=== PATIENT | male | born 1965 | race Asian ===

== ENCOUNTER 2018-02-26 00:48 | Emergency (ER) | payer OTHER ==
[~2018-02-26] VITALS: Ht 170.2 cm; Wt 76.2 kg
[2018-02-26 01:11] VITALS: Ht 170.2 cm; Wt 76.2 kg
[2018-02-26 03:19] LABS: BASOPHIL % 0.4 % (0-2); PLATELET COUNT 218 x10^3mcL (130-400); RED CELL DISTRIBUTION WIDTH 13.8 % (11.5-14.5)
[2018-02-26 04:17] LABS: CALCIUM 8.5 mg/dL (8.5-10.1); CARBON DIOXIDE 30.1 mmol/L (21-32); CHLORIDE SERUM 105 mmol/L (98-107); GFR1 > 60 mL/min; GLUCOSE SERUM 158 mg/dL (74-106); POTASSIUM SERUM 3.8 mmol/L (3.5-5.1); SODIUM SERUM 140 mmol/L (136-145)
[2018-02-26 04:22] LABS: ALBUMIN 3.7 g/dL (3.4-5.0); ALKALINE PHOSPHATASE 68 U/L (46-116); ALT/SGPT 23 U/L (16-63); AST/SGOT 11 U/L (15-37); BILIRUBIN TOTAL 0.5 mg/dL (0.20-1.00); LIPASE 176 IU/L (73-393); TOTAL PROTEIN, SERUM 7.1 g/dL (6.4-8.2)
[2018-02-26 05:02] VITALS: BP 190/90
== END 2018-02-26 05:02 | disposition home or self-care (01) ==
LOC: ED 00:48
PROVIDERS: Emergency Medicine
DX: K29.70 Gastritis, unspecified, without bleeding (principal); Z88.5 Allergy status to narcotic agent
CPT/HCPCS: 85378; J3490; Q0092

== ENCOUNTER 2018-11-30 11:56 | Emergency (ER) | payer OTHER ==
[2018-11-30 12:04] VITALS: Ht 170.2 cm
[2018-11-30 12:29] LABS: BASOPHIL % 0.1 % (0-2); PLATELET COUNT 215 x10^3mcL (130-400); RED CELL DISTRIBUTION WIDTH 14.3 % (11.5-14.5)
[2018-11-30 12:54] LABS: CALCIUM 9.3 mg/dL (8.5-10.1); CARBON DIOXIDE 27.5 mmol/L (21-32); CHLORIDE SERUM 104 mmol/L (98-107); CREATININE SERUM 1.1 mg/dL (0.7-1.3); GFR1 > 60 mL/min; GLUCOSE SERUM 129 mg/dL (74-106); POTASSIUM SERUM 4.4 mmol/L (3.5-5.1); SODIUM SERUM 141 mmol/L (136-145)
[2018-11-30 12:59] LABS: ALBUMIN 4.2 g/dL (3.4-5.0); ALKALINE PHOSPHATASE 66 U/L (46-116); ALT/SGPT 29 U/L (16-63); AST/SGOT 20 U/L (15-37); BILIRUBIN TOTAL 1.79 mg/dL (0.20-1.00); LIPASE 132 IU/L (73-393); TOTAL PROTEIN, SERUM 8.2 g/dL (6.4-8.2)
[2018-11-30 14:56] VITALS: BP 130/89
== END 2018-11-30 14:57 | disposition home or self-care (01) ==
LOC: ED 11:56
PROVIDERS: Emergency Medicine
DX: K80.50 Calculus of bile duct without cholangitis or cholecystitis without obstruction (principal)
CPT/HCPCS: 36415

== ENCOUNTER 2018-11-30 18:26 | Inpatient (IN) | payer OTHER ==
[~2018-11-30] VITALS: Ht 170.2 cm; Wt 72.6 kg
[2018-11-30 19:46] LABS: BASOPHIL % 0.1 % (0-2); PLATELET COUNT 184 x10^3mcL (130-400)
[2018-11-30 20:00] LABS: CALCIUM 7.9 mg/dL (8.5-10.1); CARBON DIOXIDE 23.7 mmol/L (21-32); CHLORIDE SERUM 105 mmol/L (98-107); GFR1 > 60 mL/min; GLUCOSE SERUM 138 mg/dL (74-106); POTASSIUM SERUM 3.7 mmol/L (3.5-5.1); SODIUM SERUM 140 mmol/L (136-145)
[2018-11-30 20:06] LABS: ALBUMIN 3.5 g/dL (3.4-5.0); ALKALINE PHOSPHATASE 57 U/L (46-116); ALT/SGPT 27 U/L (16-63); AMYLASE 48 U/L (25-115); AST/SGOT 18 U/L (15-37); BILIRUBIN TOTAL 1.4 mg/dL (0.20-1.00); LIPASE 168 IU/L (73-393); TOTAL PROTEIN, SERUM 6.8 g/dL (6.4-8.2)
[2018-11-30 23:17] VITALS: BP 130/83
[2018-11-30 23:25] VITALS: Ht 170.2 cm; Wt 72.6 kg
[2018-12-01 05:10] VITALS: BP 124/84
[2018-12-01 06:43] LABS: BASOPHIL % 0.2 % (0-2); PLATELET COUNT 181 x10^3mcL (130-400); RED CELL DISTRIBUTION WIDTH 13.9 % (11.5-14.5)
[2018-12-01 06:51] LABS: microscopic required? YES; urine erythrocyte 2+ (NEGATIVE)
[2018-12-01 07:22] LABS: CALCIUM 7.8 mg/dL (8.5-10.1); CARBON DIOXIDE 24.8 mmol/L (21-32); CHLORIDE SERUM 106 mmol/L (98-107); GFR1 > 60 mL/min; GLUCOSE SERUM 124 mg/dL (74-106); POTASSIUM SERUM 3.8 mmol/L (3.5-5.1); SODIUM SERUM 139 mmol/L (136-145)
[2018-12-01 07:51] VITALS: BP 128/78
[2018-12-01 16:32] VITALS: BP 139/94
[2018-12-01 19:51] VITALS: BP 134/72
[2018-12-02 05:09] VITALS: BP 124/66
[2018-12-02 09:20] VITALS: BP 135/84
[2018-12-02 16:18] LABS: CALCIUM 7.9 mg/dL (8.5-10.1); CARBON DIOXIDE 25.8 mmol/L (21-32); CHLORIDE SERUM 105 mmol/L (98-107); CREATININE SERUM 1.1 mg/dL (0.7-1.3); GFR1 > 60 mL/min; GLUCOSE SERUM 161 mg/dL (74-106); POTASSIUM SERUM 4.1 mmol/L (3.5-5.1); SODIUM SERUM 139 mmol/L (136-145)
[2018-12-02 16:22] LABS: ALKALINE PHOSPHATASE 48 U/L (46-116); ALT/SGPT 29 U/L (16-63); AST/SGOT 24 U/L (15-37); BILIRUBIN TOTAL 0.6 mg/dL (0.20-1.00); TOTAL PROTEIN, SERUM 6.8 g/dL (6.4-8.2)
[2018-12-02 16:24] LABS: ALBUMIN 3.2 g/dL (3.4-5.0)
[2018-12-02 17:02] VITALS: BP 146/84
[2018-12-02 21:53] VITALS: BP 139/85
[2018-12-03 06:05] VITALS: BP 112/81
[2018-12-03 06:43] LABS: BASOPHIL % 0.2 % (0-2); PLATELET COUNT 183 x10^3mcL (130-400); RED CELL DISTRIBUTION WIDTH 13.5 % (11.5-14.5)
[2018-12-03 06:47] LABS: ALKALINE PHOSPHATASE 41 U/L (46-116); ALT/SGPT 38 U/L (16-63); AST/SGOT 38 U/L (15-37); BILIRUBIN TOTAL 0.93 mg/dL (0.20-1.00); CALCIUM 8.3 mg/dL (8.5-10.1); CARBON DIOXIDE 24.7 mmol/L (21-32); CHLORIDE SERUM 105 mmol/L (98-107); GFR1 > 60 mL/min; GLUCOSE SERUM 117 mg/dL (74-106); POTASSIUM SERUM 3.3 mmol/L (3.5-5.1); SODIUM SERUM 140 mmol/L (136-145); TOTAL PROTEIN, SERUM 6.5 g/dL (6.4-8.2)
[2018-12-03 06:48] LABS: ALBUMIN 3.1 g/dL (3.4-5.0)
[2018-12-03 10:00] VITALS: BP 125/81
== END 2018-12-03 13:37 | disposition home or self-care (01) | DRG 263 ==
LOC: ED 18:26 → MU 22:35
PROVIDERS: Emergency Medicine; Surgery; ADMIT Internal Medicine
PROC: 0FT44ZZ Resection of Gallbladder, Percutaneous Endoscopic Approach (ICD-10-PCS; principal; 2018-12-02 11:30)
DX: K80.62 Calculus of gallbladder and bile duct with acute cholecystitis without obstruction (principal); E87.6 Hypokalemia; F17.210 Nicotine dependence, cigarettes, uncomplicated; R73.9 Hyperglycemia, unspecified; N39.0 Urinary tract infection, site not specified; I10 Essential (primary) hypertension; Z88.6 Allergy status to analgesic agent; Z80.0 Family history of malignant neoplasm of digestive organs
CPT/HCPCS: C9113; J1885; J1956; J2175; J2250; J2270; J2405; J3010; J3490; J7030; Q0162

== ENCOUNTER 2019-08-14 01:55 | Emergency (ER) | payer OTHER ==
[~2019-08-14] VITALS: Ht 170.2 cm; Wt 79.4 kg
[2019-08-14 02:53] LABS: CALCIUM 8.8 mg/dL (8.5-10.1); CARBON DIOXIDE 25.1 mmol/L (21-32); CHLORIDE SERUM 105 mmol/L (98-107); GFR1 > 60 mL/min; GLUCOSE SERUM 151 mg/dL (74-106); SODIUM SERUM 140 mmol/L (136-145)
[2019-08-14 02:57] LABS: ALBUMIN 3.9 g/dL (3.4-5.0); ALKALINE PHOSPHATASE 119 U/L (46-116); ALT/SGPT 301 U/L (16-63); AST/SGOT 412 U/L (15-37); BILIRUBIN TOTAL 3.15 mg/dL (0.20-1.00); TOTAL PROTEIN, SERUM 7.4 g/dL (6.4-8.2)
[2019-08-14 03:01] LABS: PLATELET COUNT 216 x10^3mcL (130-400)
[2019-08-14 03:18] LABS: BASOPHIL % 0 % (0-2)
[2019-08-14 04:00] LABS: AMYLASE 40 U/L (25-115); LIPASE 187 IU/L (73-393)
[2019-08-14 04:18] LABS: UA SPECIFIC GRAVITY >=1.030 (1.005-1.035); microscopic required? YES; urine erythrocyte 3+ (NEGATIVE)
[2019-08-14 05:15] VITALS: BP 131/86
== END 2019-08-14 05:15 | disposition home or self-care (01) ==
LOC: ED 01:55
PROVIDERS: Emergency Medicine
DX: N20.0 Calculus of kidney (principal); Z88.5 Allergy status to narcotic agent; Z90.49 Acquired absence of other specified parts of digestive tract
CPT/HCPCS: J1885; J2405

== ENCOUNTER 2019-08-26 12:54 | Inpatient (IN) | payer OTHER ==
[~2019-08-26] VITALS: Ht 170.2 cm; Wt 70.8 kg
[2019-08-26 12:59] VITALS: Ht 170.2 cm; Wt 70.8 kg
[2019-08-26 13:28] LABS: PLATELET COUNT 198 x10^3mcL (130-400); RED CELL DISTRIBUTION WIDTH 14.2 % (11.5-14.5)
[2019-08-26 13:42] LABS: BILIRUBIN TOTAL 11.5 mg/dL (0.20-1.00); CALCIUM 8.2 mg/dL (8.5-10.1); CARBON DIOXIDE 20.3 mmol/L (21-32); CREATININE SERUM 1.4 mg/dL (0.7-1.3); TOTAL PROTEIN, SERUM 6.5 g/dL (6.4-8.2)
[2019-08-26 14:02] LABS: BAND NEUTROPHIL 5 % (0-10); BASOPHIL 0 % (0-2); MONOCYTE 4 % (0-7); SEGMENTED NEUTROPHILS 90 % (37-75)
[2019-08-26 14:04] LABS: PLATELET MORPHOLOGY PLATELETS DECREASED; rbc morphology (normal/abnorm) ABNORMAL (NORMAL)
[2019-08-26 14:37] LABS: ALBUMIN 2.8 g/dL (3.4-5.0)
[2019-08-26 17:05] VITALS: BP 115/71
[2019-08-26 20:55] VITALS: BP 120/64
[2019-08-26 23:31] LABS: microscopic required? YES; urine erythrocyte 3+ (NEGATIVE)
[2019-08-26 23:39] LABS: AMPHETAMINE QUAL UR NONE DETECTED (See below)
[2019-08-27 05:09] VITALS: BP 105/64
[2019-08-27 06:41] LABS: RED CELL DISTRIBUTION WIDTH 14.4 % (11.5-14.5)
[2019-08-27 06:51] LABS: CALCIUM 8.4 mg/dL (8.5-10.1); CARBON DIOXIDE 19.2 mmol/L (21-32); CREATININE SERUM 1.9 mg/dL (0.7-1.3); POTASSIUM SERUM 3.7 mmol/L (3.5-5.1)
[2019-08-27 06:54] LABS: PLATELET COUNT 129 x10^3mcL (130-400)
[2019-08-27 07:04] LABS: ALBUMIN 2.4 g/dL (3.4-5.0); TOTAL PROTEIN, SERUM 6.1 g/dL (6.4-8.2)
[2019-08-27 07:07] LABS: BILIRUBIN DIRECT 10.47 mg/dL (0.0-0.2)
[2019-08-27 07:24] LABS: BAND NEUTROPHIL 7 % (0-10); MONOCYTE 3 % (0-7); SEGMENTED NEUTROPHILS 88 % (37-75)
[2019-08-27 07:25] LABS: PLATELET MORPHOLOGY PLATELETS DECREASED
[2019-08-27 07:26] LABS: rbc morphology (normal/abnorm) NORMAL (NORMAL)
[2019-08-27 07:34] LABS: ALBUMIN 2.5 g/dL (3.4-5.0); TOTAL PROTEIN, SERUM 5.3 g/dL (6.4-8.2)
[2019-08-27 07:36] LABS: BILIRUBIN TOTAL 12.33 mg/dL (0.20-1.00)
[2019-08-27 07:40] VITALS: BP 96/58
[2019-08-27 10:04] LABS: AMYLASE 1836 U/L (25-115)
[2019-08-27 10:05] LABS: LIPASE 9550 IU/L (73-393)
[2019-08-27 13:45] VITALS: BP 113/75
[2019-08-27 16:45] VITALS: BP 108/63
[2019-08-27 20:08] VITALS: BP 105/65
[2019-08-28 04:46] VITALS: BP 104/60
[2019-08-28 06:42] LABS: RED CELL DISTRIBUTION WIDTH 14.4 % (11.5-14.5)
[2019-08-28 07:10] LABS: BILIRUBIN TOTAL 4.5 mg/dL (0.20-1.00); CALCIUM 8.1 mg/dL (8.5-10.1); CARBON DIOXIDE 24.5 mmol/L (21-32); CREATININE SERUM 1.5 mg/dL (0.7-1.3); POTASSIUM SERUM 3.3 mmol/L (3.5-5.1)
[2019-08-28 07:20] VITALS: BP 113/66
[2019-08-28 07:22] LABS: ALBUMIN 1.8 g/dL (3.4-5.0); TOTAL PROTEIN, SERUM 5.4 g/dL (6.4-8.2)
[2019-08-28 08:21] LABS: PLATELET COUNT 111 x10^3mcL (130-400)
[2019-08-28 10:38] LABS: BAND NEUTROPHIL 0 % (0-10); MONOCYTE 5 % (0-7); SEGMENTED NEUTROPHILS 90 % (37-75); rbc morphology (normal/abnorm) NORMAL (NORMAL)
[2019-08-28 17:50] VITALS: BP 119/71
[2019-08-28 19:26] VITALS: BP 120/72
[2019-08-29 03:59] VITALS: BP 105/65
[2019-08-29 06:35] LABS: ALKALINE PHOSPHATASE 155 U/L (46-116); ALT/SGPT 108 U/L (16-63); AST/SGOT 41 U/L (15-37); BILIRUBIN TOTAL 3.23 mg/dL (0.20-1.00); CALCIUM 7.9 mg/dL (8.5-10.1); CARBON DIOXIDE 24.7 mmol/L (21-32); CHLORIDE SERUM 106 mmol/L (98-107); GFR1 > 60 mL/min; GLUCOSE SERUM 109 mg/dL (74-106); LIPASE 488 IU/L (73-393); POTASSIUM SERUM 3.5 mmol/L (3.5-5.1); SODIUM SERUM 138 mmol/L (136-145)
[2019-08-29 06:49] LABS: ALBUMIN 1.7 g/dL (3.4-5.0); TOTAL PROTEIN, SERUM 5.3 g/dL (6.4-8.2)
[2019-08-29 07:31] LABS: BASOPHIL % 0 % (0-2); PLATELET COUNT 104 x10^3mcL (130-400); RED CELL DISTRIBUTION WIDTH 14.8 % (11.5-14.5)
[2019-08-29 08:40] VITALS: BP 100/71
[2019-08-29 16:20] VITALS: BP 142/88
[2019-08-29 20:30] VITALS: BP 126/75
[2019-08-30 06:25] VITALS: BP 119/72
[2019-08-30 07:30] LABS: PLATELET COUNT 126 x10^3mcL (130-400)
[2019-08-30 08:45] VITALS: BP 119/72
[2019-08-30 09:18] VITALS: BP 127/74
[2019-08-30] MEDS ORDERED: LEVAQUIN750 MG PO (10:10)
[2019-08-30 10:26] LABS: BASOPHIL 0 % (0-2); MONOCYTE 9 % (0-7); PLATELET MORPHOLOGY PLATELETS NORMAL; SEGMENTED NEUTROPHILS 78 % (37-75)
[2019-08-30 10:30] LABS: BAND NEUTROPHIL 3 % (0-10)
[2019-08-30 11:42] LABS: ALBUMIN 1.8 g/dL (3.4-5.0); ALKALINE PHOSPHATASE 142 U/L (46-116); ALT/SGPT 93 U/L (16-63); AST/SGOT 41 U/L (15-37); BILIRUBIN DIRECT 1.99 mg/dL (0.0-0.2); BILIRUBIN TOTAL 2.9 mg/dL (0.20-1.00); CARBON DIOXIDE 27.1 mmol/L (21-32); CHLORIDE SERUM 108 mmol/L (98-107); GFR1 > 60 mL/min; GLUCOSE SERUM 110 mg/dL (74-106); POTASSIUM SERUM 3.5 mmol/L (3.5-5.1); SODIUM SERUM 145 mmol/L (136-145); TOTAL PROTEIN, SERUM 5.8 g/dL (6.4-8.2)
== END 2019-08-30 13:15 | disposition home or self-care (01) ==
LOC: ED 12:54 → DU 15:51 → MU 15:51
PROVIDERS: Emergency Medicine; Internal Medicine Gastroenterology; ADMIT Internal Medicine
PROC: 0F798DZ Dilation of Common Bile Duct with Intraluminal Device, Via Natural or Artificial Opening Endoscopic (ICD-10-PCS; principal; 2019-08-27 10:30)
PROC: BF101ZZ Fluoroscopy of Bile Ducts using Low Osmolar Contrast (ICD-10-PCS; 2019-08-27 10:30)
DX: K80.51 Calculus of bile duct without cholangitis or cholecystitis with obstruction (principal); K85.90 Acute pancreatitis without necrosis or infection, unspecified; N17.9 Acute kidney failure, unspecified; K83.8 Other specified diseases of biliary tract; E83.51 Hypocalcemia; N39.0 Urinary tract infection, site not specified; R74.0 Nonspecific elevation of levels of transaminase and lactic acid dehydrogenase [LDH]; Z88.5 Allergy status to narcotic agent; Z90.49 Acquired absence of other specified parts of digestive tract; Z87.442 Personal history of urinary calculi
CPT/HCPCS: 43262; C1769; C2625; G0378; J0610; J1170; J1610; J1885; J2405; J2543; J2765; J3010; J3480; J3490; J7030; J7120; Q0092; Q9967

== ENCOUNTER → 2019-11-05 | Outpatient (CLI) | payer OTHER ==
[~2019-11-05] MED LIST: LEVAQUIN750 MG PO
== END | disposition home or self-care (01) ==
LOC: RD 08:08
DX: K85.90 Acute pancreatitis without necrosis or infection, unspecified (principal)

== ENCOUNTER 2019-11-12 06:50 | Day surgery (SDC) | payer OTHER ==
[~2019-11-12] VITALS: Ht 170.2 cm; Wt 74.4 kg
[2019-11-12 07:19] VITALS: BP 145/94
[2019-11-12 10:34] VITALS: BP 146/97
== END 2019-11-12 10:30 | disposition home or self-care (01) ==
LOC: GI 06:50 → OR 08:00 → GI 10:30
DX: Z12.11 Encounter for screening for malignant neoplasm of colon (principal); D12.2 Benign neoplasm of ascending colon; D12.4 Benign neoplasm of descending colon; K57.30 Diverticulosis of large intestine without perforation or abscess without bleeding; Z90.49 Acquired absence of other specified parts of digestive tract; Z87.442 Personal history of urinary calculi
CPT/HCPCS: 45378; J1200; J1610; J2250; J2310; J3010; J3490

== ENCOUNTER → 2019-11-25 | Outpatient (CLI) | payer OTHER | END | disposition home or self-care (01) | LOC: RD 09:22 | DX: K85.90 Acute pancreatitis without necrosis or infection, unspecified (principal); Z80.0 Family history of malignant neoplasm of digestive organs ==

== ENCOUNTER → 2019-11-28 | Outpatient (CLI) | payer OTHER | END | disposition home or self-care (01) | LOC: RD 07:20 | DX: K85.90 Acute pancreatitis without necrosis or infection, unspecified (principal); Z80.0 Family history of malignant neoplasm of digestive organs ==

== ENCOUNTER 2019-11-29 11:39 | Emergency (ER) | payer OTHER ==
[~2019-11-29] VITALS: Ht 170.2 cm; Wt 74.4 kg
[2019-11-29 11:43] VITALS: Ht 170.2 cm; Wt 74.4 kg
[2019-11-29 14:16] VITALS: BP 121/79
== END 2019-11-29 14:50 | disposition home or self-care (01) ==
LOC: ED 11:39
DX: M25.551 Pain in right hip (principal); M79.604 Pain in right leg; Z88.5 Allergy status to narcotic agent; Z90.49 Acquired absence of other specified parts of digestive tract
CPT/HCPCS: J1885

== ENCOUNTER 2019-12-03 06:49 | Day surgery (SDC) | payer OTHER ==
[~2019-12-03] VITALS: Ht 170.2 cm; Wt 74.4 kg
[2019-12-03 07:19] VITALS: BP 144/96
[2019-12-03 13:25] VITALS: BP 142/93
== END 2019-12-03 12:30 | disposition home or self-care (01) ==
LOC: GI 06:49 → DS 06:49 → OR 08:30 → GI 08:30 → DS 12:30
DX: Z45.89 Encounter for adjustment and management of other implanted devices (principal); K83.8 Other specified diseases of biliary tract; K31.4 Gastric diverticulum; K29.80 Duodenitis without bleeding; K29.50 Unspecified chronic gastritis without bleeding; F17.210 Nicotine dependence, cigarettes, uncomplicated; Z96.89 Presence of other specified functional implants; Z88.8 Allergy status to other drugs, medicaments and biological substances; Z79.899 Other long term (current) drug therapy; Z90.49 Acquired absence of other specified parts of digestive tract; Z87.442 Personal history of urinary calculi
CPT/HCPCS: 43260; C1769; J1610; J2250; J3010; Q9967